=== PATIENT | female | born 1985 | race Caucasian/White ===

== ENCOUNTER 2020-02-12 10:42 | Emergency (ER) | payer MEDICAID ==
[~2020-02-12] VITALS: Ht 160 cm; Wt 89.2 kg
[2020-02-12 10:46] VITALS: BP 118/73
[2020-02-12 11:24] LABS: CLARITY,URINE CLEAR (Clear); COLOR,URINE YELLOW (Yellow); GLUCOSE, URINE NEGATIVE (Neg); KETONES,URINE NEGATIVE (Neg); LEUKOCYTE ESTERASE ,URINE TRACE (Neg); NITRITES, URINE NEGATIVE (Neg); OCCULT BLOOD,URINE NEGATIVE (Neg); PROTEIN,URINE NEGATIVE (Neg); UROBILINOGEN,URINE 0.2 E.U/dL (0.2-1.0)
[2020-02-12 11:26] LABS: UA COLLECTION TYPE NON-SPECIFIED
[2020-02-12 11:30] LABS: BACTERIA,URINE 1+ /HPF (Neg); RBC,URINE 0-2 /HPF (0-2); SQUAMOUS EPITHELIAL CELL,UR MODERATE /LPF (FEW); WBC,URINE 0-4 /HPF (0-4)
[2020-02-12 11:32] LABS: URINE HCG NEGATIVE (NEG)
[2020-02-12 11:43] LABS: URINE AMPHETAMINE SCREEN NEGATIVE (Neg); URINE BARBITUATE SCREEN NEGATIVE (Neg); URINE BENZODIAZEPINES SCREEN NEGATIVE (Neg); URINE CANNABINOID SCREEN NEGATIVE (Neg); URINE COCAINE SCREEN NEGATIVE (Neg); URINE METHADONE SCREEN NEGATIVE (Neg); URINE OPIATE SCREEN NEGATIVE (Neg); URINE PHENCYCLIDINE SCREEN NEGATIVE (Neg)
== END 2020-02-12 11:46 | disposition home or self-care (01) ==
LOC: ER 10:42
DX: F41.0 Panic disorder [episodic paroxysmal anxiety] (principal); F41.9 Anxiety disorder, unspecified; F17.200 Nicotine dependence, unspecified, uncomplicated; F15.90 Other stimulant use, unspecified, uncomplicated
CPT/HCPCS: 80305; 81001; 81025; 87088; 93005; 99284

== ENCOUNTER 2020-02-17 08:27 | Emergency (ER) | payer MEDICAID ==
[~2020-02-17] VITALS: Ht 160 cm; Wt 88.6 kg
[2020-02-17 10:01] VITALS: BP 126/78
--- NOTE | 2020-02-17 10:01 | NUR ---
u/s at bedside, pt vss
== END 2020-02-17 10:33 | disposition home or self-care (01) ==
LOC: ER 08:27
DX: M25.561 Pain in right knee (principal); R25.2 Cramp and spasm; F41.9 Anxiety disorder, unspecified; F17.200 Nicotine dependence, unspecified, uncomplicated; Z56.0 Unemployment, unspecified
CPT/HCPCS: 72110; 73564; 93971; 99284

== ENCOUNTER 2020-04-01 19:13 | Emergency (ER) | payer MEDICAID ==
[~2020-04-01] VITALS: Ht 160 cm; Wt 103.2 kg
[2020-04-01 19:14] VITALS: BP 101/79
== END 2020-04-01 21:05 | disposition home or self-care (01) ==
LOC: ER 19:14
DX: R00.2 Palpitations (principal); F41.9 Anxiety disorder, unspecified; F32.9 Major depressive disorder, single episode, unspecified; F17.200 Nicotine dependence, unspecified, uncomplicated; Z56.0 Unemployment, unspecified
CPT/HCPCS: 99283

== ENCOUNTER 2020-04-29 18:13 | Emergency (ER) | payer MEDICAID ==
[~2020-04-29] VITALS: Ht 160 cm; Wt 104.5 kg
--- NOTE | 2020-04-29 18:24 | NUR ---
pt placed into room 11, door closed, with hepa filter and GUANAKITO Harden made aware of the pt and enhanced precautions. Sign on door and isolation cart in front of room.
[2020-04-29] MEDS ORDERED: ipratropium/albuterol 3ml nebule NEB ONE (18:45)
[2020-04-29] MEDS ORDERED: predniSONE 20 mg tablet PO ONE (18:45)
[2020-04-29] MEDS ORDERED: ALBU18HF2 INH (18:49)
[2020-04-29] MEDS ORDERED: PRED20TA PO (18:49)
[2020-04-29] MEDS ORDERED: INHA1INH2 INH (18:49)
[2020-04-29 19:22] VITALS: BP 129/85
== END 2020-04-29 19:20 | disposition home or self-care (01) ==
LOC: ER 18:14
DX: J98.01 Acute bronchospasm (principal); F41.9 Anxiety disorder, unspecified; F32.9 Major depressive disorder, single episode, unspecified; F17.200 Nicotine dependence, unspecified, uncomplicated; Z56.0 Unemployment, unspecified; Z79.899 Other long term (current) drug therapy; Z20.828 Contact with and (suspected) exposure to other viral communicable diseases
CPT/HCPCS: 36415; 93005; 94640; 99284; J7512; U0003; 94760

== ENCOUNTER 2020-07-17 18:45 | Emergency (ER) | payer MEDICAID ==
[~2020-07-17] VITALS: Ht 160 cm; Wt 104.2 kg
[~2020-07-17 18:45] MED LIST: ALBU18HF2 INH; INHA1INH2 INH
[2020-07-17 18:49] VITALS: BP 127/89
[2020-07-17 19:12] LABS: URINE HCG NEGATIVE (NEG)
[2020-07-17 19:19] LABS: CLARITY,URINE CLOUDY (Clear); COLOR,URINE YELLOW (Yellow); GLUCOSE, URINE NEGATIVE (Neg); KETONES,URINE NEGATIVE (Neg); LEUKOCYTE ESTERASE ,URINE MODERATE (Neg); NITRITES, URINE NEGATIVE (Neg); OCCULT BLOOD,URINE LARGE (Neg); PROTEIN,URINE NEGATIVE (Neg)
[2020-07-17 19:22] LABS: UA COLLECTION TYPE CLN CATCH MIDSTREAM
[2020-07-17 19:28] LABS: WBC,URINE 30-50 /HPF (0-4)
[2020-07-17 19:29] LABS: BACTERIA,URINE 3+ /HPF (Neg); MUCUS STRANDS MANY /LPF (Neg); SQUAMOUS EPITHELIAL CELL,UR MANY /LPF (FEW)
[2020-07-17] MEDS ORDERED: CEPH-572 PO (19:46)
[2020-07-17] MEDS ORDERED: cephalexin 250mg capsule PO ONE (19:50)
== END 2020-07-17 20:02 | disposition home or self-care (01) ==
LOC: ER 18:46
DX: N39.0 Urinary tract infection, site not specified (principal); F41.9 Anxiety disorder, unspecified; F32.9 Major depressive disorder, single episode, unspecified; Z56.0 Unemployment, unspecified; Z79.2 Long term (current) use of antibiotics; Z79.899 Other long term (current) drug therapy
CPT/HCPCS: 36415; 81001; 81025; 87491; 99283

== ENCOUNTER 2020-08-03 18:39 | Emergency (ER) | payer MEDICAID ==
[~2020-08-03] VITALS: Ht 160 cm; Wt 104.8 kg
[2020-08-03 18:47] VITALS: BP 137/72
[2020-08-03 19:29] LABS: CLARITY,URINE CLEAR (Clear); COLOR,URINE YELLOW (Yellow); GLUCOSE, URINE NEGATIVE (Neg); KETONES,URINE NEGATIVE (Neg); LEUKOCYTE ESTERASE ,URINE MODERATE (Neg); NITRITES, URINE NEGATIVE (Neg); OCCULT BLOOD,URINE TRACE-INTACT (Neg); PH,URINE 5.5 (4.8-8.0); PROTEIN,URINE NEGATIVE (Neg); URINE HCG NEGATIVE (NEG); UROBILINOGEN,URINE 0.2 E.U/dL (0.2-1.0)
[2020-08-03 19:32] LABS: UA COLLECTION TYPE CLN CATCH MIDSTREAM
[2020-08-03 19:35] LABS: SQUAMOUS EPITHELIAL CELL,UR MANY /LPF (FEW)
[2020-08-03 19:37] LABS: RBC,URINE 0-2 /HPF (0-2); WBC,URINE 30-50 /HPF (0-4)
[2020-08-03 19:38] LABS: BACTERIA,URINE 2+ /HPF (Neg)
[2020-08-03 19:39] LABS: MUCUS STRANDS FEW /LPF (Neg); WBC CLUMPS,URINE MODERATE /HPF (NEGATIVE)
[2020-08-03 19:41] LABS: CELLULAR CAST 0-4 /LPF (NEGATIVE)
[2020-08-03] MEDS ORDERED: DOXY100C76 PO (19:49)
== END 2020-08-03 20:08 | disposition home or self-care (01) ==
LOC: ER 18:39
DX: N39.0 Urinary tract infection, site not specified (principal); F15.90 Other stimulant use, unspecified, uncomplicated; F11.90 Opioid use, unspecified, uncomplicated; F41.9 Anxiety disorder, unspecified; F32.9 Major depressive disorder, single episode, unspecified; Z87.440 Personal history of urinary (tract) infections; Z56.0 Unemployment, unspecified; Z79.2 Long term (current) use of antibiotics; Z79.899 Other long term (current) drug therapy
CPT/HCPCS: 36415; 81001; 81025; 87491; 99283

== ENCOUNTER 2020-10-04 15:07 | Emergency (ER) | payer MEDICAID ==
[~2020-10-04] VITALS: Ht 160 cm; Wt 104.0 kg
[2020-10-04 15:13] VITALS: BP 135/82
[2020-10-05] MEDS ORDERED: CEPH-572 PO (15:39)
== END 2020-10-04 17:18 | disposition left against medical advice (07) ==
LOC: ER 15:08
DX: R22.43 Localized swelling, mass and lump, lower limb, bilateral (principal); Z53.21 Procedure and treatment not carried out due to patient leaving prior to being seen by health care provider

== ENCOUNTER 2024-06-20 08:50 | Emergency (ER) | payer MEDICAID ==
[~2024-06-20] VITALS: Ht 160 cm; Wt 129.9 kg
[~2024-06-20 08:50] MED LIST changes: +CEPH-572 PO
[2024-06-20] MEDS: proparacaine 0.5% ophthalmic drops 15ml EACHEYE ONE (09:41)
[2024-06-20] MEDS ORDERED: CIPR2.5D21 LEFTEYE (11:09)
[2024-06-20 11:28] VITALS: BP 159/90; PULSE 93; RESP 17; TEMP 98; O2SAT 95
[2024-07-12] MEDS ORDERED: AMOX-117 PO (12:07)
== END 2024-06-20 11:35 | disposition home or self-care (01) ==
LOC: ER 08:50
DX: S05.02XA Injury of conjunctiva and corneal abrasion without foreign body, left eye, initial encounter (principal); F41.9 Anxiety disorder, unspecified; F32.A Depression, unspecified; F17.200 Nicotine dependence, unspecified, uncomplicated; F15.90 Other stimulant use, unspecified, uncomplicated; F11.90 Opioid use, unspecified, uncomplicated; Z56.0 Unemployment, unspecified; Z87.440 Personal history of urinary (tract) infections; Z79.2 Long term (current) use of antibiotics; Z79.899 Other long term (current) drug therapy; X58.XXXA Exposure to other specified factors, initial encounter; Y93.89 Activity, other specified; Y92.89 Other specified places as the place of occurrence of the external cause; Y99.8 Other external cause status
CPT/HCPCS: 99283

== ENCOUNTER 2024-08-04 09:39 | Emergency (ER) | payer MEDICAID ==
[~2024-08-04] VITALS: Ht 160 cm; Wt 133.1 kg
[~2024-08-04 09:39] MED LIST changes: +AMOX-117 PO
[2024-08-04 10:28] LABS: BASOPHILS # (AUTO) 0.1 X10'3 (0-0.2); BASOPHILS % (AUTO) 1.2 % (0-1); EOSINOPHILS # (AUTO) 0.2 X10'3 (0-0.9); HEMATOCRIT 38.2 % (35.0-45.0); HEMOGLOBIN 12.6 g/dl (12.0-16.0); LYMPHOCYTES # (AUTO) 1.7 X10'3 (1.1-4.8); LYMPHOCYTES % (AUTO) 25.8 % (21-51); MEAN CORPUSCULAR HEMOGLOBIN 28.8 PG (27.0-31.0); MEAN CORPUSCULAR VOLUME 87.2 FL (78-98); MEAN PLATELET VOLUME 8.6 FL (7.4-10.4); MONOCYTES # (AUTO) 0.5 X10'3 (0-0.9); MONOCYTES % (AUTO) 8.3 % (2-12); NEUTROPHILS # (AUTO) 4.1 X10'3 (1.8-7.7); NEUTROPHILS % (AUTO) 61.7 % (42-75); PLATELET COUNT 304 X10'3 (140-440); RED BLOOD COUNT 4.38 X10'6 (4.20-5.60); RED CELL DISTRIBUTION WIDTH 15.8 % (11.5-14.5); WHITE BLOOD COUNT 6.7 X10'3 (4.5-11.0)
[2024-08-04 10:34] LABS: ALANINE AMINOTRANSFERASE 41 U/L (12-78); ALBUMIN 2.8 G/DL (3.4-5.0); ALBUMIN/GLOBULIN RATIO 0.7 (1.1-1.5); ALKALINE PHOSPHATASE 76 IU/L (46-116); ANION GAP 6 (8-16); ASPARTATE AMINO TRANSFERASE 29 U/L (10-37); BILIRUBIN,TOTAL 0.3 MG/DL (0.1-1.0); BLOOD UREA NITROGEN 5 MG/DL (7-18); CALCIUM 8.4 MG/DL (8.5-10.1); CHLORIDE 100 MMOL/L (99-107); CREATININE 0.84 MG/DL (0.40-0.90); GLUCOSE 170 MG/DL (70-104); LIPASE 18 U/L (16-77); SODIUM 138 MMOL/L (135-145); TOTAL CARBON DIOXIDE 32.3 MMOL/L (24-32); TOTAL PROTEIN 7.1 G/DL (6.4-8.2); eCRCL 74 ML/MIN; eGFR 75 ML/MIN
[2024-08-04 10:42] LABS: POTASSIUM 2.8 MMOL/L (3.5-5.1)
[2024-08-04] MEDS: potassium CL 10mEq/100ml bag 100 ML IV ONE (11:49)
[2024-08-04 11:56] VITALS: TEMP 97.6
[2024-08-04] MEDS: POTASSIUM CHLORIDE 20 MEQ/15 ML oral solution PO STA (12:53)
[2024-08-04] MEDS ORDERED: METH150T PO (13:54)
[2024-08-04] MEDS ORDERED: NA P133E4 RC (13:55)
[2024-08-04] MEDS ORDERED: POLY119P2 PO (13:55)
[2024-08-04 14:20] VITALS: BP 146/89; PULSE 86; RESP 15; O2SAT 100
== END 2024-08-04 14:23 | disposition home or self-care (01) ==
LOC: ER 09:40
DX: K59.03 Drug induced constipation (principal); E87.6 Hypokalemia; F41.9 Anxiety disorder, unspecified; F32.A Depression, unspecified; F15.90 Other stimulant use, unspecified, uncomplicated; F11.90 Opioid use, unspecified, uncomplicated; Z56.0 Unemployment, unspecified; Z79.899 Other long term (current) drug therapy; Z79.2 Long term (current) use of antibiotics
CPT/HCPCS: 36415; 74019; 80053; 83690; 85025; 96365; 99285; J3480; J7030

== ENCOUNTER 2024-08-19 09:38 | Emergency (ER) | payer MEDICAID ==
[~2024-08-19] VITALS: Ht 160 cm; Wt 132.8 kg
[~2024-08-19 09:38] MED LIST changes: +METH150T PO; +POLY119P2 PO
[2024-08-19 09:41] VITALS: BP 194/103; PULSE 113; RESP 18; O2SAT 97
[2024-08-19] MEDS: triamcinolone acetonide 40mg/ml inj IM ONE (10:27)
[2024-08-19] MEDS: cephalexin 250mg capsule PO ONE (10:27)
[2024-08-19] MEDS ORDERED: CEPH-585 PO (10:37)
[2024-08-19] MEDS ORDERED: SULF1TAB45 PO (10:43)
[2024-08-19 11:15] LABS: BASOPHILS % (AUTO) 0.6 % (0-1); EOSINOPHILS # (AUTO) 0.1 X10'3 (0-0.9); EOSINOPHILS % (AUTO) 2.3 % (0-6); HEMATOCRIT 37.6 % (35.0-45.0); HEMOGLOBIN 12.1 g/dl (12.0-16.0); LYMPHOCYTES # (AUTO) 1.5 X10'3 (1.1-4.8); LYMPHOCYTES % (AUTO) 22.4 % (21-51); MEAN CORPUSCULAR HEMOGLOBIN 28.3 PG (27.0-31.0); MEAN CORPUSCULAR HGB CONC 32.3 g/dL (33.0-36.5); MEAN CORPUSCULAR VOLUME 87.4 FL (78-98); MEAN PLATELET VOLUME 7.9 FL (7.4-10.4); MONOCYTES # (AUTO) 0.4 X10'3 (0-0.9); MONOCYTES % (AUTO) 6.7 % (2-12); NEUTROPHILS # (AUTO) 4.4 X10'3 (1.8-7.7); PLATELET COUNT 368 X10'3 (140-440); RED CELL DISTRIBUTION WIDTH 15.6 % (11.5-14.5); WHITE BLOOD COUNT 6.5 X10'3 (4.5-11.0)
[2024-08-19 11:32] LABS: ALBUMIN 2.9 G/DL (3.4-5.0); ANION GAP 7 (8-16); BLOOD UREA NITROGEN 6 MG/DL (7-18); CALCIUM 8.7 MG/DL (8.5-10.1); CHLORIDE 101 MMOL/L (99-107); CREATININE 0.86 MG/DL (0.40-0.90); GLUCOSE 155 MG/DL (70-104); SODIUM 136 MMOL/L (135-145); TOTAL CARBON DIOXIDE 27.9 MMOL/L (24-32); eCRCL 72 ML/MIN; eGFR 73 ML/MIN
[2024-08-19 11:44] VITALS: TEMP 97
== END 2024-08-19 11:46 | disposition home or self-care (01) ==
LOC: ER 09:39
DX: L03.116 Cellulitis of left lower limb (principal); L03.115 Cellulitis of right lower limb; F41.9 Anxiety disorder, unspecified; F32.A Depression, unspecified; F11.90 Opioid use, unspecified, uncomplicated; F15.90 Other stimulant use, unspecified, uncomplicated; Z79.2 Long term (current) use of antibiotics; Z79.899 Other long term (current) drug therapy; Z56.0 Unemployment, unspecified
CPT/HCPCS: 36415; 80048; 83605; 84145; 85025; 87040; 96372; 99283; J3301

== ENCOUNTER 2024-09-26 14:02 | Emergency (ER) | payer MEDICAID ==
[~2024-09-26] VITALS: Ht 160 cm; Wt 127.3 kg
[~2024-09-26 14:02] MED LIST changes: +CEPH-585 PO
[2024-09-26 14:06] VITALS: TEMP 98.5
[2024-09-26] MEDS ORDERED: HYDROcodone/acetaminophen 10/325mg tab PO ONE (14:40)
[2024-09-26] MEDS: HYDROmorphone 1 mg/ml syringe IM ONE (15:15)
[2024-09-26] MEDS: TETanus/Pertussis (Acell)/Diphther VAC/PF (Tdap-Adult) 0.5ml syringe IMVAC ONE (15:21)
[2024-09-26] MEDS ORDERED: LIDOcaine 40mg/ml topical solution MM ONE (15:30)
[2024-09-26] MEDS: LidoCAINE 2% Topical Jelly 11mL syringe (UROJET) TOP ONE (15:59)
[2024-09-26] MEDS: oxyCODONE/APAP 10/325mg tablet PO ONE (16:17)
[2024-09-26] MEDS ORDERED: NAPR-1480 PO (16:49)
[2024-09-26] MEDS ORDERED: BACI1PAC7 TP (16:50)
[2024-09-26] MEDS ORDERED: PER5325T PO (16:55)
[2024-09-26] MEDS ORDERED: naproxen sodium 220mg tablet PO SCH (17:00)
[2024-09-26] MEDS: naproxen sodium 220mg tablet PO ONE (17:25)
[2024-09-26] MEDS: bacitracin 15gm ointment TP ONE (17:25)
[2024-09-26 17:34] VITALS: BP 128/104; PULSE 109; RESP 16; O2SAT 97
== END 2024-09-26 17:38 | disposition home or self-care (01) ==
LOC: ER 14:03
DX: T23.251A Burn of second degree of right palm, initial encounter (principal); F11.20 Opioid dependence, uncomplicated; F15.90 Other stimulant use, unspecified, uncomplicated; Z79.899 Other long term (current) drug therapy; Z87.440 Personal history of urinary (tract) infections; X19.XXXA Contact with other heat and hot substances, initial encounter; Y93.89 Activity, other specified; Y92.89 Other specified places as the place of occurrence of the external cause; Y99.8 Other external cause status
CPT/HCPCS: 16020; 90471; 90715; 96372; 99284; J1171; A6253; A6258; A6446; A6449

== ENCOUNTER 2025-03-02 18:21 | Emergency (ER) | payer MEDICAID ==
[~2025-03-02] VITALS: Ht 160 cm; Wt 129.5 kg
[~2025-03-02 18:21] MED LIST changes: +NAPR-1480 PO
[2025-03-02 18:29] VITALS: O2SAT 98
[2025-03-02 21:05] VITALS: BP 126/86; PULSE 66; TEMP 98.2
--- NOTE | 2025-03-02 21:25 | Physician Documentation ---
HPI ~ General Chief Complaint: Tooth Problem Stated Complaint: TOOTH PAIN Time Seen by MD: 20:57 Primary Medical Doctor: DERRICK SCHWARTZ History of Present Illness HPI Comment This is a 39-year-old female who presents with right lower rear dental pain, patient reports present for approximately the last week and worse in the last three days. Patient reports no fever. Patient reports that the tooth was previously supposed to have a root canal however she reports that the tooth fractured and the root canal had to be canceled, patient reports she has not had a chance to her dentist yet. Medication Reconciliation Allergies: Coded Allergies: No Known Allergies (Unverified , 08/19/24) Scheduled Albuterol Sulfate (Ventolin Hfa), 2 PUFFS INH Q4HPRN Amox Tr/Potassium Clavulanate (Augmentin 875-125 Tablet), 1 TAB PO Q12H Amox Tr/Potassium Clavulanate 875/125 MG (Augmentin 875/125 MG), 1 TAB PO BID Cephalexin (Keflex), 1 CAP PO Q12H Cephalexin*Monohydrate* (Keflex*), 1 CAP PO QID Ibuprofen (Ibuprofen), 1 TAB PO Q8H Methylnaltrexone Reva (Relistor), 3 TAB PO QAM Naproxen (Naproxen), 1 TAB PO Q12H Polyethylene Glycol 3350 (Miralax), 17 GM PO DAILY Durable Medical Equipment Inhaler, Assist Devices (Aerochamber with Flowsignal), UNIT INH QID, (DME) Past Medical History Past Medical History: UTI, Anxiety, Depression Past Surgical History: no surgical history Alcohol Use: None Drug Use: methamphetamine, heroin Lives with: Other Lives In: Other Occupation: unemployed Review of Systems ROS Right rear lower dental pain as stated above in the HPI, otherwise all systems are reviewed and negative. Physical Exam Vital Signs: Temperature: 98.2, Source: Oral, Heart Rate: 66, Respiratory Rate: 22, BP: 126/86, Pulse Oximetry: 98, Weight: 129.500 Oxygen Flow Rate: 0 Physical Exam VITALS: Reviewed and as above. GENERAL: Alert, nontoxic appearing, no apparent distress. HEENT: Right rear lower molar severe dental caries and decay, gingiva at the base of right rear molar erythematous without swelling, discharge, or fluctuance. No elevation of the tongue, no submandibular swelling, uvula midline, oropharynx nonerythematous, moist mucous membranes. No facial swelling. RESPIRATORY: No increased work of breathing, no respiratory distress, speaking in full clear sentences Progress Results/Orders Results/Orders Completed Orders - PRETTY BETANCOURT [employer] RECRUITER Ketorolac Trometh 15mg/Ml Vial (Toradol (03/02/25 21:30) Amox Tr/Potassium Clavulanate (Augmentin (03/02/25 21:30) Medications Received in ER Medications (Trade) Dose Ordered Sig/Glen Route PRN Reason Start Time Stop Time Status Last Admin Dose Admin (Toradol injection) 15 mg ONCE ONCE IM 03/02/25 21:30 03/02/25 21:36 DC 03/02/25 21:58 15 MG (Augmentin 875-125mg tablet) 1 tab ONCE ONCE PO 03/02/25 21:30 03/02/25 21:31 DC 03/02/25 21:57 1 TAB Vital Signs 03/02/25 03/02/25 03/02/25 18:29 21:05 21:58 Temp 98.2 98.2 Pulse 86 66 Resp 16 22 15 B/P (MAP) 112/69 126/86 (99) Pulse Ox 98 O2 Flow Rate 0 0 Medical Decision Making Findings This well appearing 39-year-old female presented with dental pain to the right rear lower molar. Physical exam did not demonstrate evidence of fluctuance, or drainage, tooth was noted to be severely decayed with severe dental calos. Based on history and physical exam I have low clinical suspicion for peritonsillar abscess, uvulitis, deep tissue space infection of the head/neck, or impending airway compromise. There was no submandibular swelling or elevation of the tongue, the uvula was midline, patient is able to swallow flui ds and secretion without difficulty, there is no increased work of breathing or noisy breathing. Remainder of physical exam was benign. Based on presentation I am concerned for odontogenic infection and antibiotic treatment with Augmentin is indicated. Pain control with non-narcotic medications is appropriate at this time. Patient was appropriate for outpatient follow up with dentist, patient was advised to follow up with a dentist as soon as possible. Return to care precautions were discussed with the patient who verbalized understanding. Differential Dx:Considerations: Include: Alveolar fracture, ANUG, Facial Cellulitis, Periapical abscess, Peridontal abscess, Tooth avulsion, Tooth eruption, Trigeminal neuralgia, Other (Maynor's angina, retropharyngeal abscess, peritonsillar abscess) Departure Time of Disposition: 21:28 Disposition: 01 HOME / SELF CARE / HOMELESS Impression: Primary Impression: Toothache Condition: Improved Discharge Instructions: Dental Pain Additional Instructions: Please take the antibiotics as prescribed. Follow up with a dentist as soon as possible. You may use the high dose ibuprofen that is prescribed as needed for pain starting tomorrow, you may add acetaminophen as needed for breakthrough pain as directed by [id number] packaging. Please follow up with your primary care provider in the next few days as well. Please return to the emergency department for any new or worsening concerning symptoms including but not limited to difficulty breathing, difficulty swallowing liquids, or if you develop a fever over 100.4 that does not lower with ibuprofen or Tylenol. Referrals: NO PRIMARY CARE PROVIDER (PCP) Prescriptions Ibuprofen (Ibuprofen) 800 Mg Tablet 1 TAB PO Q8H for pain for 10 Days, #30 TAB 0 Refills Prov: PRETTY BETANCOURT 03/02/25 Amox Tr/Potassium Clavulanate 875/125 MG (Augmentin 875/125 MG) 875 Mg-125 Mg Tablet 1 TAB PO BID for 7 Days, #14 TAB Prov: PRETTY BETANCOURT 03/02/25 Education Educated: Patient Educated regarding: diagnosis, treatment, prognosis, need for follow up Signature Scribe Signature: No scribe Attestation: The note accurately reflects work and decisions made by me.CURT Willard 03/03/25 01:27 PRETTY BETANCOURT March 02, 2025 21:25
[2025-03-02] MEDS ORDERED: AMOX-580 PO (21:26)
[2025-03-02] MEDS ORDERED: IBUP-1986 PO (21:26)
[2025-03-02] MEDS: amox tr/potassium clavulanate 875/125mg TAB PO ONE (21:57)
[2025-03-02 21:58] VITALS: RESP 15
[2025-03-02] MEDS: ketorolac trometh 15mg/ml vial 15 MG/ML ML IM ONE (21:58)
== END 2025-03-02 22:07 | disposition home or self-care (01) ==
LOC: ER 18:21
DX: K08.89 Other specified disorders of teeth and supporting structures (principal); F41.9 Anxiety disorder, unspecified; F32.A Depression, unspecified
CPT/HCPCS: 96372; 99283; J1885

== ENCOUNTER 2025-08-03 16:18 | Emergency (ER) | payer MEDICAID ==
[~2025-08-03] VITALS: Ht 160 cm; Wt 135.4 kg
[~2025-08-03 16:18] MED LIST changes: +IBUP-1986 PO
--- NOTE | 2025-08-03 17:26 | Physician Documentation ---
History of Present Illness ~ Chief Complaint: Sore Throat Stated Complaint: THROAT PAIN Time Seen by MD: 17:18 Primary Medical Doctor: DERRICK SCHWARTZ HPI Is a 40-year-old female that presents to the emergency department for evaluation of sore throat with exudate on her tonsils bilaterally times 2-3 days. Patient reports that she thinks she has had fevers but she has not taken her temperature. Patient denies any nausea or vomiting at this time. Patient does report that she has gagged a couple of times because her throat feels swollen when she tries to eat. Patient denies any other symptoms at this time. Medication Reconciliation Allergies: Coded Allergies: No Known Allergies (Unverified , 08/03/25) Scheduled Albuterol Sulfate (Ventolin Hfa), 2 PUFFS INH Q4HPRN Amox Tr/Potassium Clavulanate (Augmentin 875-125 Tablet), 1 TAB PO Q12H Cephalexin (Keflex), 1 CAP PO Q12H Cephalexin*Monohydrate* (Keflex*), 1 CAP PO QID Ibuprofen (Ibuprofen), 1 TAB PO Q8H Methylnaltrexone Byers (Relistor), 3 TAB PO QAM Naproxen (Naproxen), 1 TAB PO Q12H Polyethylene Glycol 3350 (Miralax), 17 GM PO DAILY Durable Medical Equipment Inhaler, Assist Devices (Aerochamber with Flowsignal), UNIT INH QID, (DME) Past Medical History Past Medical History: UTI, Anxiety, Depression Past Surgical History: no surgical history Alcohol Use: None Drug Use: methamphetamine, heroin Lives with: Other Lives In: Other Occupation: unemployed Review of Systems ROS As stated above in the HPI, otherwise all systems are reviewed and negative. Physical Exam Vital Signs: Temperature: 97.8, Source: Temporal, Heart Rate: 97, Respiratory Rate: 18, BP: 149/79, Pulse Oximetry: 98, Weight: 135.450 Physical Exam VITALS: Reviewed and as above. GENERAL: Alert, no apparent distress. HEENT: Normocephalic, atraumatic, PERRL, EOMI, dry mucosa, no erythema, erythema and exudate noted to the posterior oropharynx bilaterally. RESPIRATORY: Lungs clear, normal breath sounds, no respiratory distress. CHEST: No accessory muscle use, no retractions CV: Regular rate, rhythm, no edema, no murmur, No: JVD GI: Soft, non-tender, bowels sounds present, no rebound, guarding, or rigidity BACK: No CVA tenderness, or swelling MUSCULOSKELETAL No deformities, no edema SKIN: Warm and dry, no rash NEURO: Oriented x4, No motor or sensory deficit PSYCH: Normal mood and affect, no agitation Progress Results/Orders Results/Orders Orders - YUNG RAGLAND CURT Covid19 Binax Poc Result Entry (08/03/25 17:20) Completed Orders - ELLYN,YUNG A ADVERTISING REP Strep A Rapid (08/03/25 17:20) Influenza Type A&B Rapid Test (08/03/25 17:20) Vital Signs 08/03/25 16:48 Temp 97.8 Pulse 97 Resp 18 B/P (MAP) 149/79 Pulse Ox 98 Laboratory Tests Test 08/03/25 17:36 08/03/25 17:57 Influenza Type A Antigen Negative Influenza Type B Antigen Negative SARS-CoV-2 Antigen (Rapid) Negative Group A Streptococcus Rapid Positive H Glucometer 181 H Medical Decision Making Additional info obtained from: other Findings A 40-year-old female presents to the emergency department for evaluation of sore throat x2 days. Strep culture is positive at this time. Flu COVID negative. Patient will be provided 1st dose of antibiotics here patient will be prescribed prescription she can fern picker from her pharmacy tomorrow No history of immunocompromise. Nontoxic appearance. Patient euvolemic with no trismus. No airway compromise. No change in voice, exudates, enlarged lymph nodes. Able to tolerate PO. Given History and Exam I have low suspicion for this presentation being caused by SEMICONDUCTOR WAFERS MARKER, RPA, Ludwigs angina, Epiglottitis or Bacterial Tracheitis, EBV, acute HIV this time. Tylenol ibuprofen as needed for discomfort. Please increase your fluids. Please follow up with the primary care provider. Please return to the emergency department with any worsening or recurrent symptoms or any additional concerning symptoms that we discussed here today i.e. difficulty swallowing increased swelling significantly increased exudate fever chills nausea vomiting after 48 hours on antibiotics any other concerning symptoms that we discussed here today. Ear Diff. Dx: Considerations: Include: Abrasion, Cerumen impaction, Foreign body, Otitis externa, Barotrauma, Otitis media, Perforation, Referred pain- dental, Referred pain-pharyngitis, Referred pain-sinusitis, Referred pain-TMJ syn., Tympanic Membrane Injury, Other Eye Diff. Dx: Considerations: Include: Chalazoin, Conjuctivits-allergic, Conjuctivitis-bacterial, Conjuctivits-chlamydial, Conjuctivitis-viral, Corneal abrasion, Corneal laceration, Corneal ulceration, Foreign body-conjuctiva, Foreign body-corneal, Foreign body-intraocular, Foreign body-lid, Glaucoma, Globe rupture, Hordeolum, Iritis, Orbital cellulitis, Periobital cellulitis, Retinal artery occulsion, Retinal vein occlusion, Rust ring, Subconjunctival hem, Ultraviolet keratitis, Uveitis, Vitreous hemorrhage, Other Nose Diff. Dx: Considerations: Include: Abrasion, Anterior nasal bleed, Avulsion, Contusion, Coagulopathy, Fracture-nasal bone, Fracture-septum, Hyperte nsion, Laceration, Other, Posterior nasal bleed, Retained foreign body, Septal hematoma Tooth Diff. Dx: Considerations: Include: Alveolar fracture, Aveolar osteitis, ANUG, Facial cellulitis, Periapical abscess, Periodontal abscess, Post- extraction bleeding, Pulpitis, Trigeminal neuralgia, Tooth-avulsion, Tooth- eruption, Tooth-fracture, Tooth-subluxation, Other Throat Diff Dx: Considerations: Include: AIDS, Epiglottitis, Esophageal candidiasis, Hand foot mouth disease, Herpangina, Herpetic stomatitis, Herpes simplex, Infection mononucleosis, Immunodeficiency, Maynor's angina, Peritonsillar abscess, Peritonsillar cellulitis, Pharyngitis-diphtheria, Pharyngitis-strepococcal, Pharyngitis-viral, Thrush, URI, Other Departure Disposition: 01 HOME / SELF CARE / HOMELESS Impression: Primary Impression: Swelling of tonsil Additional Impressions: Sore throat Strep pharyngitis Condition: Stable Discharge Instructions: Strep Throat, Adult, Sore Throat, Pharyngitis Additional Instructions: A 40-year-old female presents to the emergency department for evaluation of sore throat x2 days. Strep culture is positive at this time. Flu COVID negative. Patient will be provided 1st dose of antibiotics here patient will be prescribed prescription she can fern picker from her pharmacy tomorrow No history of immunocompromise. Nontoxic appearance. Patient euvolemic with no trismus. No airway compromise. No change in voice, exudates, enlarged lymph nodes. Able to tolerate PO. Given History and Exam I have low suspicion for this presentation being caused by SEMICONDUCTOR WAFERS MARKER, RPA, Ludwigs angina, Epiglottitis or Bacterial Tracheitis, EBV, acute HIV this time. Tylenol ibuprofen as needed for discomfort. Please increase your fluids. Please follow up with the primary care provider. Please return to the emergency department with any worsening or recurrent symptoms or any additional concerning symptoms that we discussed here today i.e. difficulty swallowing increased swelling significantly increased exudate fever chills nausea vomiting after 48 hours on antibiotics any other concerning symptoms that we discussed here today. Referrals: NO PRIMARY CARE PROVIDER (PCP) Prescriptions Amox Tr/Potassium Clavulanate 875/125 MG (Augmentin 875/125 MG) 875 Mg-125 Mg Tablet 1 TAB PO Q12H for 10 Days, #20 TAB Prov: YUNG RAGLAND 08/03/25 Education Educated: Patient Educated regarding: diagnosis, treatment, need for follow up YUNG RAGLAND Aug 03, 2025 17:26
[2025-08-03 18:02] LABS: STREP A SCREEN POSITIVE (Neg)
[2025-08-03 18:07] LABS: INFLUENZA TYPE A ANTIGEN RAPID NEGATIVE (Negative); INFLUENZA TYPE B ANTIGEN RAPID NEGATIVE (Negative)
[2025-08-03] MEDS ORDERED: AMOX-580 PO (18:34)
[2025-08-03] MEDS: amox tr/potassium clavulanate 875/125mg TAB PO ONE (18:42)
[2025-08-03 18:43] VITALS: BP 145/75; PULSE 90; RESP 18; TEMP 98.8; O2SAT 99
== END 2025-08-03 18:44 | disposition home or self-care (01) ==
LOC: ER 16:18
DX: J02.0 Streptococcal pharyngitis (principal); B95.0 Streptococcus, group A, as the cause of diseases classified elsewhere; J35.8 Other chronic diseases of tonsils and adenoids; F41.9 Anxiety disorder, unspecified; F32.A Depression, unspecified; F15.90 Other stimulant use, unspecified, uncomplicated; F11.90 Opioid use, unspecified, uncomplicated; Z87.440 Personal history of urinary (tract) infections; Z79.899 Other long term (current) drug therapy; Z56.0 Unemployment, unspecified; Z20.822 Contact with and (suspected) exposure to COVID-19
CPT/HCPCS: 36415; 82948; 87804; 87811; 87880; 99283